=== PATIENT | female | born 1945 | race Caucasian/White ===

== ENCOUNTER 2018-01-30 09:31 | Inpatient (IN) | payer MEDICARE ==
[~2018-01-30] VITALS: Ht 163.8 cm; Wt 63.5 kg
[~2018-01-30 09:31] MED LIST: ASPI-496 PO; ATOR40TA PO; BACITRACIN 50,000 UNIT ONE; BUPIVACAINE/PF-EPI 0.5% 1:200K ONE; CALC-112 PO; CHOL100011 PO; CYAN1TAB29 PO; ESOM40CA PO; FISH1CAP PO; FLUO5DRO2 RIGHTEYE; GABA300C10 PO; GABA600T2 PO; GINK120T3 PO; LATA2.5D3 EACHEYE; LATA2.5D3 RIGHTEYE; LOSA25TA6 PO; MAGNESIUM PO; MULT-516 PO; PIND10TA PO; PROP150T2 PO; THROMBIN 20,000 UNIT VIAL TP ONE; TIMO5DRO33 RIGHTEYE
[2018-01-30] MEDS ORDERED: LACTATED RINGERS 1,000 ML IV SCH (09:57)
[2018-01-30] MEDS ORDERED: GABAPENTIN 300 MG CAPSULE PO ONE (10:00)
[2018-01-30] MEDS ORDERED: ACETAMINOPHEN 500 MG TABLET PO ONE (10:00)
[2018-01-30] MEDS ORDERED: OxyconTIN ER 10 MG TAB.ER PO ONE (10:00)
[2018-01-30] MEDS ORDERED: ONDANSETRON ODT 8 MG PO ONE (10:00)
[2018-01-30] MEDS ORDERED: PLEASE ENTER HEIGHT AND WEIGHT MC SCH (10:30)
[2018-01-30] MEDS ORDERED: OXYC-432 PO (10:36)
[2018-01-30] MEDS ORDERED: CARB15DR3 LEFTEYE (10:36)
[2018-01-30] MEDS ORDERED: NEO/3.5O7 LEFTEYE (10:36)
[2018-01-30] MEDS ORDERED: MIDAZOLAM 1 MG/ML, 2ML ONE (10:59)
[2018-01-30] MEDS ORDERED: FENTANYL PF 250 MCG/5ML ONE (10:59)
[2018-01-30] MEDS ORDERED: ROCURONIUM 10 MG/ML,10ML ONE (11:40)
[2018-01-30] MEDS ORDERED: SUCCINYLCHOLINE 20 MG/ML, 10ML ONE (11:40)
[2018-01-30] MEDS ORDERED: SCOPOLAMINE PATCH, 1.5MG PATCH.TD72 TD PRN (12:00)
[2018-01-30] MEDS ORDERED: ONDANSETRON 2MG/ML, 2ML IV PRN ×2 (12:00→16:30)
[2018-01-30] MEDS ORDERED: MEPERIDINE/PF 25MG/0.5ML IVPush PRN (12:00)
[2018-01-30] MEDS ORDERED: LABETALOL 5MG/ML, 20ML IV PRN (12:00)
[2018-01-30] MEDS ORDERED: PROMETHAZINE 25 MG/ML, 1ML IV PRN (12:00)
[2018-01-30] MEDS ORDERED: HYDROmorphone 1 MG/ML, 1ML IV PRN (12:00)
[2018-01-30] MEDS ORDERED: MIDAZOLAM 1 MG/ML, 2ML IV PRN (12:00)
[2018-01-30] MEDS ORDERED: ALBUTEROL/IPRATROPIUM 2.5MG/0.5MG, 3 ML NPPB PRN (12:00)
[2018-01-30] MEDS ORDERED: OXYcodone 5 MG/5 ML ORAL.SOL UDC PO PRN (12:00)
[2018-01-30] MEDS ORDERED: PROPOFOL 50 ML ONE (13:14)
[2018-01-30] MEDS ORDERED: NEOSPORIN OINT, 15GM ONE (14:02)
[2018-01-30] MEDS ORDERED: DEXAMETHASONE 4 MG/ML, 1ML ONE (14:04)
[2018-01-30] MEDS ORDERED: CEFAZOLIN 1,000 MG ONE (14:04)
[2018-01-30] MEDS ORDERED: PROPOFOL 10 MG/ML, 20ML ONE (14:04)
[2018-01-30] MEDS ORDERED: OXYcodone 5 MG/5 ML ORAL.SOL UDC ONE (14:39)
[2018-01-30] MEDS: FENTANYL PF 100 MCG/2ML IV PRN ×2 (14:46→15:05)
[2018-01-30] MEDS ORDERED: FENTANYL PF 100 MCG/2ML ONE (14:57)
[2018-01-30] MEDS ORDERED: CYCLOBENZAPRINE 10 MG TABLET ONE (14:57)
[2018-01-30] MEDS ORDERED: CYCLOBENZAPRINE 10 MG TABLET PO ONE (15:00)
[2018-01-30] MEDS ORDERED: DIPHENHYDRAMINE 50 MG/ML, 1ML ONE (15:17)
[2018-01-30] MEDS ORDERED: DIPHENHYDRAMINE 50 MG/ML, 1ML IVPush ONE (15:30)
[2018-01-30 16:05] VITALS: BP 124/70
[2018-01-30] MEDS ORDERED: DIPHENHYDRAMINE 50 MG/ML, 1ML IM PRN (16:30)
[2018-01-30] MEDS ORDERED: LORazepam 1MG TABLET PO PRN (16:30)
[2018-01-30] MEDS ORDERED: HYDROcodone/APAP 10/325 MG TABLET PO PRN (16:30)
[2018-01-30] MEDS ORDERED: OXYcodone/APAP 5/325MG TABLET PO PRN (16:30)
[2018-01-30] MEDS ORDERED: DIPHENHYDRAMINE 50 MG/ML, 1ML IVPush PRN (16:30)
[2018-01-30] MEDS ORDERED: DIPHENHYDRAMINE 50 MG CAPSULE PO PRN (16:30)
[2018-01-30] MEDS ORDERED: MAGNESIUM HYDROXIDE 8%, 30ML UDC PO PRN (16:30)
[2018-01-30] MEDS ORDERED: morphine SULFATE 10 MG/ML, 1ML IV PRN (16:30)
[2018-01-30] MEDS ORDERED: BISACODYL 10 MG SUPP PR PRN (16:30)
[2018-01-30] MEDS ORDERED: PROMETHAZINE 25 MG/ML, 1ML IM PRN (16:30)
[2018-01-30] MEDS ORDERED: REFRESH OP PRN ×2 (17:00)
[2018-01-30 20:00] VITALS: BP 109/59
[2018-01-30] MEDS: LATANOPROST OPHTH 0.005%, 2.5ML OP SCH (21:00)
[2018-01-30] MEDS: [UNRECOGNIZED DRUG - OTHER] OP SCH (21:00)
[2018-01-30] MEDS: DEXAMETHASONE OP SCH (21:00)
[2018-01-30] MEDS: NEOMYCIN OP SCH (21:00)
[2018-01-30] MEDS: NS + 20MEQ KCL 1,000 ML IV SCH (21:32)
[2018-01-30] MEDS: GABAPENTIN 300 MG CAPSULE PO SCH (21:33)
[2018-01-30] MEDS: ATORVASTATIN 40 MG TABLET PO SCH (21:33)
[2018-01-30] MEDS: CEFAZOLIN 2,000 MG in SODIUM CHLORIDE 0.9% 50 ML IVPB SCH (21:33)
[2018-01-30] MEDS: PROPAFENONE 150 MG TABLET PO SCH (21:34)
[2018-01-30 23:14] VITALS: BP 115/67
[2018-01-31 03:21] VITALS: BP 139/76
[2018-01-31 05:52] LABS: BASOPHILS # (AUTO) 0.02 x10^3/uL (0-0.1); BASOPHILS % (AUTO) 0 % (0-1); EOSINOPHILS % (AUTO) 0 % (1-7); LYMPHOCYTES # (AUTO) 1.12 x10^3/uL (1-3.4); LYMPHOCYTES % (AUTO) 10 % (22-44); MD NO; MEAN CORPUSCULAR HGB CONC 33.8 g/dL (32.4-35.8); MEAN CORPUSCULAR VOLUME 88.9 fL (80-100); MEAN PLATELET VOLUME 9.2 fL (7.4-10.4); MONOCYTES # (AUTO) 0.37 x10^3/uL (0.2-0.8); MONOCYTES % (AUTO) 4 % (2-9); NEUTROPHILS # (AUTO) 9.21 x10^3/uL (1.8-6.8); NEUTROPHILS % (AUTO) 86 % (42-75); PLATELET COUNT 214 x10^3/uL (130-400); RED BLOOD COUNT 3.88 x10^6/uL (3.82-5.3); RED CELL DISTRIBUTION WIDTH 13.8 % (9.6-15.2)
[2018-01-31 05:59] LABS: ANION GAP 8 mmol/L (5-15); CALCIUM 8.4 mg/dL (8.5-10.1); CHLORIDE 109 mmol/L (98-107); CREATININE 0.73 mg/dL (0.55-1.02)
[2018-01-31] MEDS: CEFAZOLIN 2,000 MG in SODIUM CHLORIDE 0.9% 50 ML IVPB SCH ×2 (06:07→13:42)
[2018-01-31] MEDS: OMEPRAZOLE 20 MG CAPSULE.DR PO SCH (08:28)
[2018-01-31] MEDS: GABAPENTIN 300 MG CAPSULE PO SCH ×3 (08:29→19:52)
[2018-01-31] MEDS: CALCIUM/VITAMIN D3 250-125 TABLET PO SCH (08:32)
[2018-01-31] MEDS: CHOLECALCIFEROL 1,000 UNIT TABLET PO SCH (08:33)
[2018-01-31] MEDS: PROPAFENONE 150 MG TABLET PO SCH ×3 (08:33→19:52)
[2018-01-31] MEDS: SENNA/DOCUSATE TABLET PO SCH (08:34)
[2018-01-31] MEDS: FML OP SCH (08:35)
[2018-01-31 08:36] VITALS: BP 136/73
[2018-01-31] MEDS ORDERED: LOSARTAN 25MG TABLET PO SCH (09:00)
[2018-01-31] MEDS ORDERED: PINDOLOL 10 MG PO SCH (09:00)
[2018-01-31] MEDS: OXYcodone/APAP 10/325MG TABLET PO PRN ×5 (09:18→23:16)
[2018-01-31] MEDS: PINDOLOL 5 MG TABLET PO SCH (09:21)
[2018-01-31] MEDS: NS + 20MEQ KCL 1,000 ML IV SCH ×2 (09:33→19:53)
[2018-01-31 15:00] VITALS: BP 126/67
[2018-01-31] MEDS: CYCLOBENZAPRINE 10 MG TABLET PO PRN ×2 (15:37→23:16)
[2018-01-31 19:21] VITALS: BP 119/70
[2018-01-31] MEDS: NEOMYCIN OP SCH (19:52)
[2018-01-31] MEDS: LATANOPROST OPHTH 0.005%, 2.5ML OP SCH (19:52)
[2018-01-31] MEDS: DEXAMETHASONE OP SCH (19:52)
[2018-01-31] MEDS: [UNRECOGNIZED DRUG - OTHER] OP SCH (19:52)
[2018-01-31] MEDS: ATORVASTATIN 40 MG TABLET PO SCH (19:52)
[2018-02-01 01:27] VITALS: BP 138/72
[2018-02-01] MEDS: OXYcodone/APAP 10/325MG TABLET PO PRN ×3 (02:19→08:30)
[2018-02-01] MEDS: OMEPRAZOLE 20 MG CAPSULE.DR PO SCH (07:32)
[2018-02-01 07:37] VITALS: BP 106/64
[2018-02-01] MEDS: PINDOLOL 5 MG TABLET PO SCH (08:28)
[2018-02-01] MEDS: PROPAFENONE 150 MG TABLET PO SCH (08:28)
[2018-02-01] MEDS: GABAPENTIN 300 MG CAPSULE PO SCH (08:28)
[2018-02-01] MEDS: CALCIUM/VITAMIN D3 250-125 TABLET PO SCH (08:29)
[2018-02-01] MEDS: SENNA/DOCUSATE TABLET PO SCH (08:29)
[2018-02-01] MEDS: FML OP SCH (08:29)
[2018-02-01] MEDS: CHOLECALCIFEROL 1,000 UNIT TABLET PO SCH (08:29)
[2018-02-01] MEDS: CYCLOBENZAPRINE 10 MG TABLET PO PRN (08:50)
[2018-02-01] MEDS ORDERED: POLYETHYLENE GLYCOL 17 GM PACKET PO ONE (09:00)
[2018-02-01] MEDS ORDERED: CYCL5TAB PO (09:23)
[2018-02-01] MEDS ORDERED: OXYC-307 PO (09:23)
[2018-02-01] MEDS: NS + 20MEQ KCL 1,000 ML IV SCH (09:39)
[2018-02-01 10:29] VITALS: BP 106/64
== END 2018-02-01 11:38 | disposition home or self-care (01) | DRG 460 ==
LOC: ORIP 09:31 → 4NOR 16:01
PROVIDERS: ADMIT Neurological Surgery; ATTEND Neurological Surgery
PROC: 0SG3071 Fusion of Lumbosacral Joint with Autologous Tissue Substitute, Posterior Approach, Posterior Column, Open Approach (ICD-10-PCS; 2018-01-30)
PROC: 01NB0ZZ Release Lumbar Nerve, Open Approach (ICD-10-PCS; 2018-01-30)
PROC: 0SB40ZZ Excision of Lumbosacral Disc, Open Approach (ICD-10-PCS; 2018-01-30)
PROC: 4A11X4G Monitoring of Peripheral Nervous Electrical Activity, Intraoperative, External Approach (ICD-10-PCS; 2018-01-30)
PROC: 0SP304Z Removal of Internal Fixation Device from Lumbosacral Joint, Open Approach (ICD-10-PCS; principal; 2018-01-30 13:00)
DX: M96.0 Pseudarthrosis after fusion or arthrodesis (principal); M48.061 Spinal stenosis, lumbar region without neurogenic claudication; M54.18 Radiculopathy, sacral and sacrococcygeal region; M43.06 Spondylolysis, lumbar region; Z82.61 Family history of arthritis; Z82.49 Family history of ischemic heart disease and other diseases of the circulatory system; Z80.9 Family history of malignant neoplasm, unspecified; Z94.7 Corneal transplant status; Z90.710 Acquired absence of both cervix and uterus; Z88.1 Allergy status to other antibiotic agents; Z88.8 Allergy status to other drugs, medicaments and biological substances; Y83.4 Other reconstructive surgery as the cause of abnormal reaction of the patient, or of later complication, without mention of misadventure at the time of the procedure; Y92.89 Other specified places as the place of occurrence of the external cause; M51.27 Other intervertebral disc displacement, lumbosacral region; I10 Essential (primary) hypertension; E78.5 Hyperlipidemia, unspecified; K21.9 Gastro-esophageal reflux disease without esophagitis; G47.33 Obstructive sleep apnea (adult) (pediatric); G89.29 Other chronic pain
CPT/HCPCS: 36415; 72100; 80048; 85025; 86850; 86900; C1713; G0378; J0690; J1100; J2250; J2270; J2704; J3010; J3480; Q0162; C1762; J0330; J1200; J7120